=== PATIENT | female | born 1935 | race Caucasian/White ===

== ENCOUNTER 2016-05-12 18:00 | Emergency (ER) | payer OTHER, MEDICARE ==
[~2016-05-12] VITALS: Ht 152.4 cm; Wt 67.0 kg
[2016-05-12 18:39] LABS: EOSINOPHIL (%) 5.1 % (0-5); EOSINOPHIL COUNT 0.4 K/uL (0-0.3); HEMATOCRIT 33.6 % (36.0-46.0); IMMATURE GRANULOCYTE (%) 0.3 % (0.0-0.7); INSTRUMENT ABS NEUTROPHIL CT 3.4 K/uL; LYMPHOCYTE COUNT 3.1 K/uL (1.0-2.8); MCH 29.2 PG (29.0-34.0); MCHC 32.7 G/DL (30.0-36.0); MCV 89.1 FL (83-99); MEAN PLAT.VOLUME 11.2 uM^3 (9.5-12.4); MONOCYTE (%) 7.3 % (3-12); MONOCYTE COUNT 0.6 K/uL (0-0.8); NEUTROPHIL (%) 45.1 % (45-76); NEUTROPHIL COUNT 3.4 K/uL (1.8-6.4); PLATELET COUNT 350 K/uL (156-360); RBC DIS.WIDTH-CV 13.1 % (11.8-14.6); RBC DIS.WIDTH-SD 42.6 % (39-53); RED BLOOD COUNT 3.77 M/uL (3.80-5.20); WHITE BLOOD COUNT 7.5 K/uL (4.1-10.2)
[2016-05-12 19:00] LABS: CHLORIDE 106 mEq/L (99-109); POTASSIUM 3.4 mEq/L (3.7-5.4); SODIUM 143 mEq/L (136-147)
[2016-05-12 19:03] LABS: GLUCOSE 102 mg/dL (70-99)
[2016-05-12 19:04] LABS: ANION GAP 13 MEQ/L (2-14)
[2016-05-12 19:04] LABS: ADD MIUA? YES; BILIRUBIN NEGATIVE; BLOOD NEGATIVE; COLOR YELLOW ((YELLOW)); GLUCOSE (STRIP) NEGATIVE; KETONES NEGATIVE; LEUKOCYTES MODERATE; NITRITE NEGATIVE; PROTEIN (STRIP) NEGATIVE; SPECIFIC GRAVITY 1.012 (1.000-1.030); UROBILINOGEN 0.2 MG/DL (0.2-1.0)
[2016-05-12 19:05] LABS: TOTAL BILIRUBIN 0.2 mg/dL (0.0-1.0)
[2016-05-12 19:06] LABS: ALKALINE PHOSPHATASE 74 IU/L (3-129)
[2016-05-12 19:07] LABS: GFR ESTIMATE (CALCULATED) 46 mL/min/
[2016-05-12 19:08] LABS: UREA NITROGEN (BUN) 24 mg/dL (9-23)
[2016-05-12 19:10] LABS: LIPASE 77 U/L (1.0-51.0); TROP-I INTERPRETATION NEGATIVE; TROPONIN-I < 0.01 ng/mL (0.0-0.30)
[2016-05-12 19:11] LABS: EPITHELIAL CELLS 1+ /HPF; RED BLOOD CELLS 0-5 /HPF (0-5)
[2016-05-12 19:12] LABS: BACTERIA 2+ /HPF; MUCUS NONE SEEN /LPF
[2016-05-12] MEDS ORDERED: CARAFATE1 GM PO (19:40)
[2016-05-12 20:01] VITALS: BP 151/80
== END 2016-05-12 20:02 | disposition home or self-care (01) ==
LOC: EME 18:00
PROVIDERS: Physician Assistant
DX: R10.13 Epigastric pain (principal); E78.5 Hyperlipidemia, unspecified; I10 Essential (primary) hypertension
CPT/HCPCS: 71010; 80053; 81003; 83690; 84484; 85025; 93005; 99281; 99284

== ENCOUNTER 2016-05-16 08:21 | Emergency (ER) | payer OTHER, MEDICARE ==
[~2016-05-16] VITALS: Ht 152.4 cm; Wt 67.2 kg
[~2016-05-16 08:21] MED LIST: CARAFATE1 GM PO
[2016-05-16] MEDS ORDERED: TYLENOL WITH C1 EACH PO (11:31)
[2016-05-16] MEDS ORDERED: MEDROL DOSEPAK4 MG PO (11:31)
[2016-05-16 12:40] VITALS: BP 176/57
== END 2016-05-16 11:51 | disposition home or self-care (01) ==
LOC: EME 08:21
DX: M54.30 Sciatica, unspecified side (principal)
CPT/HCPCS: 72100; 73502; 99281; 99284; J1885; J2270

== ENCOUNTER 2017-01-01 01:03 | Observation (INO) | payer OTHER, MEDICARE ==
[~2017-01-01] VITALS: Ht 152.4 cm; Wt 62.4 kg
[~2017-01-01 01:03] MED LIST changes: +AMLODIPINE BESYL5 MG PO; +AMOXICILLIN500 MG PO; +BISACODYL5 MG PO; +DOCUSATE SODIU100 MG PO; +ECOTRIN325 MG PO; +ENDOCET 5-3251 EACH PO; +HYZAAR 100-21 TABLET PO; +LEVOFLOXACIN750 MG PO; +MEDROL DOSEPAK4 MG PO; +METOCLOPRAMIDE H5 MG PO; +NORCO 10/3251 TABLET PO; +OSTERA TABLET1 EACH PO; +POLYETHYLENE GL17 GM PO; +PRAVACHOL80 MG PO; +SENNA PLUS TAB1 EACH PO; +SYNTHROID75 MCG PO; +TOPROL XL100 MG PO; +TYLENOL WITH C1 EACH PO; +VITAMIN C1000 MG PO; +VITAMIN D31000 UNI2 PO; +VITAMIN E400 UNIT PO; +ZANTAC150 MG PO
[2017-01-01 01:38] LABS: HEMATOCRIT 32.4 % (36.0-46.0); MCH 28.7 PG (29.0-34.0); MCHC 32.1 G/DL (30.0-36.0); MCV 89.5 FL (83-99); MEAN PLAT.VOLUME 10.6 uM^3 (9.5-12.4); RBC DIS.WIDTH-CV 13.5 % (11.8-14.6); RBC DIS.WIDTH-SD 44.1 % (39-53); RED BLOOD COUNT 3.62 M/uL (3.80-5.20); WHITE BLOOD COUNT 6.8 K/uL (4.1-10.2)
[2017-01-01 01:47] LABS: CHLORIDE 104 mEq/L (99-109); POTASSIUM 3.3 mEq/L (3.7-5.4); SODIUM 143 mEq/L (136-147)
[2017-01-01 01:50] LABS: GLUCOSE 103 mg/dL (70-99)
[2017-01-01 01:51] LABS: ANION GAP 11 MEQ/L (2-14)
[2017-01-01 01:52] LABS: TOTAL BILIRUBIN 0.4 mg/dL (0.0-1.0)
[2017-01-01 01:53] LABS: ALKALINE PHOSPHATASE 103 IU/L (3-129); GFR ESTIMATE (CALCULATED) > 59 mL/min/
[2017-01-01 01:54] LABS: UREA NITROGEN (BUN) 17 mg/dL (9-23)
[2017-01-01 01:57] LABS: LIPASE 55 U/L (1.0-51.0)
[2017-01-01 02:02] LABS: TROP-I INTERPRETATION NEGATIVE; TROPONIN-I < 0.01 ng/mL (0.0-0.30)
[2017-01-01 02:19] LABS: PLATELET COUNT 346 K/uL (156-360)
[2017-01-01 06:17] VITALS: BP 126/61
[2017-01-01 08:29] VITALS: BP 172/73
[2017-01-01 11:58] VITALS: BP 135/58
[2017-01-01 12:42] LABS: TROP-I INTERPRETATION NEGATIVE; TROPONIN-I 0.01 ng/mL (0.0-0.30)
[2017-01-01] MEDS ORDERED: ELIQUIS5 MG PO (13:30)
[2017-01-01] MEDS ORDERED: ZOFRAN4 MG PO (16:10)
[2017-01-01] MEDS ORDERED: ASPIR 8181 M1 PO (16:10)
[2017-01-01] MEDS ORDERED: PROTONIX40 MG PO (16:20)
[2017-01-01 16:21] VITALS: BP 152/82
== END 2017-01-01 16:55 | disposition home or self-care (01) ==
LOC: EME 01:03 → EDOF 05:08 → ENRESERV 05:11 → 5WEST 06:04
PROVIDERS: Emergency Medicine; Hospitalist
DX: R07.89 Other chest pain (principal); N83.202 Unspecified ovarian cyst, left side; R11.2 Nausea with vomiting, unspecified; K44.9 Diaphragmatic hernia without obstruction or gangrene; I10 Essential (primary) hypertension; E78.00 Pure hypercholesterolemia, unspecified; E03.9 Hypothyroidism, unspecified; Z86.718 Personal history of other venous thrombosis and embolism; I44.7 Left bundle-branch block, unspecified; M19.90 Unspecified osteoarthritis, unspecified site; Z87.891 Personal history of nicotine dependence; Z80.1 Family history of malignant neoplasm of trachea, bronchus and lung; Z88.8 Allergy status to other drugs, medicaments and biological substances
CPT/HCPCS: 71010; 74177; 76856; 78582; 80053; 82378; 83690; 84484; 85027; 86301 90; 86304; 93005; 93971; 99281; 99285; A9540; A9567; C9113; G0378; J2405; J7030; S0028

== ENCOUNTER 2017-03-13 21:46 | Inpatient (IN) | payer OTHER, MEDICARE ==
[~2017-03-13] VITALS: Ht 152.4 cm; Wt 60.0 kg
[~2017-03-13 21:46] MED LIST changes: +ASPIR 8181 M1 PO; +ELIQUIS5 MG PO; +FEOSOL325 MG PO; +LO-DOSE ASPIRIN81 M1 PO; +NORVASC5 MG PO; +PROTONIX40 MG PO; +STOOL SOFTENER100 MG PO; +ZOFRAN4 MG PO
[2017-03-14 11:29] LABS: PTT 27.9 SEC (25-37)
[2017-03-14 11:39] VITALS: BP 173/70
[2017-03-14 17:50] VITALS: BP 157/58
[2017-03-14 18:46] LABS: HEMOGLOBIN 10.2 G/DL (11.9-15.5); MCH 29.6 PG (29.0-34.0); MCHC 31.9 G/DL (30.0-36.0); MCV 92.8 FL (83-99); RBC DIS.WIDTH-CV 12.8 % (11.8-14.6); RBC DIS.WIDTH-SD 43.4 % (39-53); RED BLOOD COUNT 3.45 M/uL (3.80-5.20); WHITE BLOOD COUNT 10.9 K/uL (4.1-10.2)
[2017-03-14 19:09] LABS: PLAT.SUFFICIENCY ADEQUATE; PLATELET COUNT 308 K/uL (156-360)
[2017-03-14 19:10] LABS: CHLORIDE 104 MEQ/L (99-109); GFR ESTIMATE (CALCULATED) 56 mL/min/; GLUCOSE 162 mg/dL (70-99); POTASSIUM 3.7 MEQ/L (3.7-5.4); SODIUM 140 MEQ/L (136-147); UREA NITROGEN (BUN) 18 mg/dL (9-23)
[2017-03-14 20:06] VITALS: BP 138/93
[2017-03-15 00:21] VITALS: BP 136/60
[2017-03-15 04:22] VITALS: BP 123/63
[2017-03-15 06:50] LABS: HEMATOCRIT 29.6 % (36.0-46.0); HEMOGLOBIN 9.2 G/DL (11.9-15.5); MCH 29.7 PG (29.0-34.0); MCHC 31.1 G/DL (30.0-36.0); MCV 95.5 FL (83-99); RBC DIS.WIDTH-CV 13.1 % (11.8-14.6); RBC DIS.WIDTH-SD 45.3 % (39-53); WHITE BLOOD COUNT 9.9 K/uL (4.1-10.2)
[2017-03-15 07:10] LABS: CHLORIDE 102 MEQ/L (99-109); CREATININE 1.1 MG/DL (0.6-1.3); GFR ESTIMATE (CALCULATED) 50 mL/min/; GLUCOSE 137 mg/dL (70-99); SODIUM 138 MEQ/L (136-147); UREA NITROGEN (BUN) 18 mg/dL (9-23)
[2017-03-15 07:22] LABS: PLAT.SUFFICIENCY ADEQUATE; PLATELET COUNT 274 K/uL (156-360)
[2017-03-15 08:00] VITALS: BP 161/57
[2017-03-15 13:00] VITALS: BP 142/82
[2017-03-15 17:05] VITALS: BP 142/60
[2017-03-15 23:48] VITALS: BP 125/61
[2017-03-16 06:41] VITALS: BP 132/62
[2017-03-16 07:01] LABS: HEMATOCRIT 25.8 % (36.0-46.0); HEMOGLOBIN 8.3 G/DL (11.9-15.5); MCH 30.3 PG (29.0-34.0); MCHC 32.2 G/DL (30.0-36.0); MCV 94.2 FL (83-99); PLATELET COUNT 202 K/uL (156-360); RBC DIS.WIDTH-SD 44.7 % (39-53); RED BLOOD COUNT 2.74 M/uL (3.80-5.20); WHITE BLOOD COUNT 7.3 K/uL (4.1-10.2)
[2017-03-16 07:26] LABS: CHLORIDE 103 MEQ/L (99-109); CREATININE 1.2 MG/DL (0.6-1.3); GFR ESTIMATE (CALCULATED) 46 mL/min/; POTASSIUM 3.5 MEQ/L (3.7-5.4); SODIUM 137 MEQ/L (136-147); UREA NITROGEN (BUN) 20 mg/dL (9-23)
[2017-03-16 07:35] LABS: GLUCOSE 88 mg/dL (70-99)
[2017-03-16 11:00] VITALS: BP 160/72
== END 2017-03-16 11:35 | disposition home or self-care (01) | DRG 743 ==
LOC: ENRESERV 21:46 → 2SOUTH 03-14 10:18 → ENRESERV 03-14 17:14 → 2EAST 03-14 17:49
PROVIDERS: Obstetrics & Gynecology Gynecologic Oncology
DX: D27.1 Benign neoplasm of left ovary (principal); I10 Essential (primary) hypertension; D64.9 Anemia, unspecified; E03.9 Hypothyroidism, unspecified; E78.00 Pure hypercholesterolemia, unspecified; M19.90 Unspecified osteoarthritis, unspecified site; M10.9 Gout, unspecified; M54.16 Radiculopathy, lumbar region; E55.9 Vitamin D deficiency, unspecified; K21.9 Gastro-esophageal reflux disease without esophagitis; K44.9 Diaphragmatic hernia without obstruction or gangrene; Z98.1 Arthrodesis status; Z86.718 Personal history of other venous thrombosis and embolism; Z79.01 Long term (current) use of anticoagulants; Z79.82 Long term (current) use of aspirin
CPT/HCPCS: 36415; 80048; 85027; 85610; 85730; 86850; 86900; 86901; 86920; 88307; 94799; J0330; J0690; J1100; J1170; J1650; J1885; J2270; J2405; J2710; J2765; J3010

== ENCOUNTER 2017-08-24 10:38 | Inpatient (IN) | payer OTHER, MEDICARE ==
[~2017-08-24] VITALS: Ht 154.9 cm; Wt 56.2 kg
[2017-08-24 11:54] LABS: HEMATOCRIT 26.5 % (36.0-46.0); HEMOGLOBIN 8.9 G/DL (11.9-15.5); MCH 30.3 PG (29.0-34.0); MCHC 33.6 G/DL (30.0-36.0); MCV 90.1 FL (83-99); PLATELET COUNT 410 K/uL (156-360); RBC DIS.WIDTH-CV 13.4 % (11.8-14.6); RED BLOOD COUNT 2.94 M/uL (3.80-5.20)
[2017-08-24 12:10] LABS: ALBUMIN 3.3 g/dL (3.2-4.8); CHLORIDE 102 mEq/L (99-109); POTASSIUM 3.3 mEq/L (3.7-5.4); SODIUM 140 mEq/L (136-147)
[2017-08-24 12:11] LABS: MAGNESIUM 2.5 mg/dL (1.3-2.7)
[2017-08-24 12:12] LABS: GLUCOSE 87 mg/dL (70-99); TOTAL PROTEIN 6.7 g/dL (6.4-8.3)
[2017-08-24 12:14] LABS: TOTAL BILIRUBIN 0.5 mg/dL (0.0-1.0)
[2017-08-24 12:16] LABS: ALKALINE PHOSPHATASE 144 IU/L (3-129); CREATININE 0.8 mg/dL (0.6-1.3); GFR ESTIMATE (CALCULATED) > 59 mL/min/
[2017-08-24 12:17] LABS: UREA NITROGEN (BUN) 20 mg/dL (9-23)
[2017-08-24 12:18] LABS: AST (GOT) 33 IU/L (2-34)
[2017-08-24 12:19] LABS: ALT (GPT) 12 IU/L (3-49); INTER. NORMALIZED RATIO 1.4
[2017-08-24 12:21] LABS: TROP-I INTERPRETATION POSITIVE
[2017-08-24 12:22] LABS: PTT 23.7 SEC (25-37); TROPONIN-I 2.91 ng/mL (0.0-0.30)
[2017-08-24] MEDS ORDERED: PANTOPRAZOLE SO40 MG PO (14:32)
[2017-08-24] MEDS ORDERED: ELIQUIS2.5 MG PO (14:32)
[2017-08-24] MEDS ORDERED: TRAMADOL HCL50 MG PO (14:32)
[2017-08-24] MEDS ORDERED: LOSARTAN-HCTZ1 EAC1 PO (14:32)
[2017-08-24 16:00] VITALS: BP 197/81
[2017-08-24 16:31] LABS: TROP-I INTERPRETATION POSITIVE; TROPONIN-I 2.58 ng/mL (0.0-0.30)
[2017-08-24 17:35] LABS: APPEARANCE CLEAR ((CLEAR)); BILIRUBIN NEGATIVE; BLOOD NEGATIVE; COLOR STRAW ((YELLOW)); GLUCOSE (STRIP) NEGATIVE; KETONES NEGATIVE; LEUKOCYTES SMALL; NITRITE NEGATIVE; PROTEIN (STRIP) NEGATIVE; SPECIFIC GRAVITY 1.012 (1.000-1.030); UROBILINOGEN 0.2 MG/DL (0.2-1.0)
[2017-08-24 17:41] LABS: BACTERIA NONE SEEN /HPF; EPITHELIAL CELLS RARE /HPF; HYALINE CASTS 0-5 /LPF; MUCUS TRACE /LPF; RED BLOOD CELLS 0-5 /HPF (0-5); UCUL ADDED? NO; WHITE BLOOD CELLS 0-5 /HPF (0-5)
[2017-08-24 19:46] VITALS: BP 146/67
[2017-08-24 23:49] VITALS: BP 152/67
[2017-08-25 00:57] LABS: TROP-I INTERPRETATION POSITIVE
[2017-08-25 00:59] LABS: TROPONIN-I 2.63 ng/mL (0.0-0.30)
[2017-08-25 04:16] VITALS: BP 152/69
[2017-08-25 06:56] LABS: HEMATOCRIT 24.3 % (36.0-46.0); MCH 29.5 PG (29.0-34.0); MCHC 32.9 G/DL (30.0-36.0); MCV 89.7 FL (83-99); PLATELET COUNT 410 K/uL (156-360); RBC DIS.WIDTH-CV 13.2 % (11.8-14.6); RBC DIS.WIDTH-SD 43.5 % (39-53); RED BLOOD COUNT 2.71 M/uL (3.80-5.20)
[2017-08-25 07:20] LABS: TROP-I INTERPRETATION POSITIVE; TROPONIN-I 2.38 ng/mL (0.0-0.30)
[2017-08-25 07:21] LABS: CHLORIDE 98 MEQ/L (99-109); CREATININE 0.9 MG/DL (0.6-1.3); GFR ESTIMATE (CALCULATED) > 59 mL/min/; GLUCOSE 97 mg/dL (70-99); POTASSIUM 3.1 MEQ/L (3.7-5.4); SODIUM 141 MEQ/L (136-147); UREA NITROGEN (BUN) 19 mg/dL (9-23)
[2017-08-25 08:12] VITALS: BP 143/67
[2017-08-25 11:48] VITALS: BP 142/66
[2017-08-25 16:00] VITALS: BP 123/58
[2017-08-25 19:45] VITALS: BP 153/70
[2017-08-25 23:39] VITALS: BP 134/62
[2017-08-26 04:30] VITALS: BP 147/66
[2017-08-26 08:47] VITALS: BP 152/67
[2017-08-26 11:38] VITALS: BP 119/94
[2017-08-26 15:34] LABS: HEMATOCRIT 26.4 % (36.0-46.0); MCH 30.1 PG (29.0-34.0); MCHC 34.1 G/DL (30.0-36.0); MCV 88.3 FL (83-99); RBC DIS.WIDTH-CV 13.1 % (11.8-14.6); RBC DIS.WIDTH-SD 42.3 % (39-53); RED BLOOD COUNT 2.99 M/uL (3.80-5.20)
[2017-08-26 15:40] LABS: PLATELET COUNT 574 K/uL (156-360)
[2017-08-26 15:53] LABS: CHLORIDE 96 MEQ/L (99-109); GFR ESTIMATE (CALCULATED) 56 mL/min/; GLUCOSE 131 mg/dL (70-99); POTASSIUM 3.2 MEQ/L (3.7-5.4); SODIUM 139 MEQ/L (136-147); UREA NITROGEN (BUN) 16 mg/dL (9-23)
[2017-08-26 16:42] VITALS: BP 161/70
[2017-08-26 20:06] VITALS: BP 156/71
[2017-08-27 00:30] VITALS: BP 140/65
[2017-08-27 03:55] VITALS: BP 150/69
[2017-08-27 08:48] VITALS: BP 143/63
[2017-08-27 09:23] LABS: CHLORIDE 101 MEQ/L (99-109); CREATININE 0.9 MG/DL (0.6-1.3); GFR ESTIMATE (CALCULATED) > 59 mL/min/; GLUCOSE 100 mg/dL (70-99); POTASSIUM 4.7 MEQ/L (3.7-5.4); SODIUM 140 MEQ/L (136-147); UREA NITROGEN (BUN) 13 mg/dL (9-23)
[2017-08-27 09:53] LABS: MAGNESIUM 1.6 mg/dl (1.3-2.7)
[2017-08-27 12:00] VITALS: BP 148/66
[2017-08-27 16:33] VITALS: BP 134/63
[2017-08-27 21:00] VITALS: BP 107/60
[2017-08-28] VITALS (7 sets, daily range): BP systolic 112–166; BP diastolic 53–71
[2017-08-28 09:59] LABS: CHLORIDE 101 MEQ/L (99-109); CREATININE 0.9 MG/DL (0.6-1.3); GFR ESTIMATE (CALCULATED) > 59 mL/min/; GLUCOSE 91 mg/dL (70-99); POTASSIUM 4.3 MEQ/L (3.7-5.4); SODIUM 139 MEQ/L (136-147); UREA NITROGEN (BUN) 17 mg/dL (9-23)
[2017-08-29 05:00] VITALS: BP 120/56
[2017-08-29 08:30] VITALS: BP 163/68
[2017-08-29] MEDS ORDERED: DOXYCYCLINE HY100 M3 PO (11:15)
[2017-08-29 11:41] VITALS: BP 123/61
[2017-08-29] MEDS ORDERED: LOSARTAN POTASS50 MG PO (12:02)
[2017-08-29] MEDS ORDERED: LASIX20 MG PO (12:04)
[2017-08-29] MEDS ORDERED: K-DUR10 MEQ PO (12:04)
== END 2017-08-29 13:45 | disposition home health service (06) | DRG 280 ==
LOC: EME 10:38 → EDOF 12:08 → 4EAST 12:08 → ENRESERV 12:10 → 4EAST 15:12
PROVIDERS: Emergency Medicine; Internal Medicine; Nurse Practitioner Family
DX: I21.4 Non-ST elevation (NSTEMI) myocardial infarction (principal); J18.9 Pneumonia, unspecified organism; J96.01 Acute respiratory failure with hypoxia; I44.7 Left bundle-branch block, unspecified; I11.0 Hypertensive heart disease with heart failure; I16.0 Hypertensive urgency; I25.10 Atherosclerotic heart disease of native coronary artery without angina pectoris; E87.6 Hypokalemia; I50.21 Acute systolic (congestive) heart failure; E78.5 Hyperlipidemia, unspecified; I25.5 Ischemic cardiomyopathy; G89.18 Other acute postprocedural pain; I27.20 Pulmonary hypertension, unspecified; D64.9 Anemia, unspecified; E03.9 Hypothyroidism, unspecified; Z86.718 Personal history of other venous thrombosis and embolism; Z98.1 Arthrodesis status; Z79.01 Long term (current) use of anticoagulants; Z79.82 Long term (current) use of aspirin; Z79.899 Other long term (current) drug therapy; Z87.891 Personal history of nicotine dependence; E66.9 Obesity, unspecified; Z68.27 Body mass index [BMI] 27.0-27.9, adult
CPT/HCPCS: 70450; 71046; 71275; 80048; 80053; 81003; 83605; 83735; 83880; 84484; 85025; 85027; 85347; 85610; 85730; 87040; 87449; 93005; 93306; 94640; 94760; 94799; 97530 GO; 99281; 99285; C1769; C1887; J0153; J1644; J1940; J2250; J2543; J3010; J3370; J7050

== ENCOUNTER 2017-08-31 07:11 | Observation (INO) | payer OTHER, MEDICARE ==
[~2017-08-31] VITALS: Ht 154.9 cm; Wt 61.6 kg
[~2017-08-31 07:11] MED LIST changes: +DOXYCYCLINE HY100 M3 PO; +ELIQUIS2.5 MG PO; +K-DUR10 MEQ PO; +LASIX20 MG PO; +LOSARTAN POTASS50 MG PO; +LOSARTAN-HCTZ1 EAC1 PO; +PANTOPRAZOLE SO40 MG PO; +TRAMADOL HCL50 MG PO
[2017-08-31 08:06] LABS: BASOPHIL (%) 0.4 % (0-1); EOSINOPHIL (%) 0.5 % (0-5); EOSINOPHIL COUNT 0.1 K/uL (0-0.3); HEMATOCRIT 28.8 % (36.0-46.0); HEMOGLOBIN 9.6 G/DL (11.9-15.5); IMMATURE GRANULOCYTE (%) 0.8 % (0.0-0.7); LYMPHOCYTE (%) 17.7 % (15-42); LYMPHOCYTE COUNT 1.9 K/uL (1.0-2.8); MCH 29.6 PG (29.0-34.0); MCHC 33.3 G/DL (30.0-36.0); MCV 88.9 FL (83-99); MONOCYTE (%) 5.8 % (3-12); MONOCYTE COUNT 0.6 K/uL (0-0.8); NEUTROPHIL (%) 74.8 % (45-76); NEUTROPHIL COUNT 8.2 K/uL (1.8-6.4); PLATELET COUNT 707 K/uL (156-360); RBC DIS.WIDTH-CV 13.5 % (11.8-14.6); RBC DIS.WIDTH-SD 43.8 % (39-53); RED BLOOD COUNT 3.24 M/uL (3.80-5.20); WHITE BLOOD COUNT 10.9 K/uL (4.1-10.2)
[2017-08-31 08:12] LABS: INTER. NORMALIZED RATIO 1.5
[2017-08-31 08:15] LABS: PTT 31.8 SEC (25-37)
[2017-08-31 08:52] LABS: ALBUMIN 3.9 G/DL (3.2-4.8); ALKALINE PHOSPHATASE 144 IU/L (3-129); ALT (GPT) 13 IU/L (3-49); AST (GOT) 22 IU/L (2-34); CHLORIDE 99 MEQ/L (99-109); CREATININE 1.2 MG/DL (0.6-1.3); DIRECT BILIRUBIN 0.1 mg/dL (0.0-0.3); GFR ESTIMATE (CALCULATED) 46 mL/min/; GLUCOSE 125 mg/dL (70-99); POTASSIUM 4.6 MEQ/L (3.7-5.4); SODIUM 139 MEQ/L (136-147); TOTAL BILIRUBIN 0.5 MG/DL (0.0-1.0); TOTAL PROTEIN 7.1 G/DL (6.4-8.3)
[2017-08-31 08:53] LABS: TROP-I INTERPRETATION INDETERMINATE; TROPONIN-I 0.52 ng/mL (0.0-0.30)
[2017-08-31 08:54] LABS: UREA NITROGEN (BUN) 37 mg/dL (9-23)
[2017-08-31 12:06] LABS: APPEARANCE CLEAR ((CLEAR)); BILIRUBIN NEGATIVE; BLOOD NEGATIVE; COLOR YELLOW ((YELLOW)); GLUCOSE (STRIP) NEGATIVE; KETONES 5; LEUKOCYTES NEGATIVE; NITRITE NEGATIVE; PROTEIN (STRIP) NEGATIVE; SPECIFIC GRAVITY 1.018 (1.000-1.030); UCUL ADDED? NO; UROBILINOGEN 0.2 MG/DL (0.2-1.0)
[2017-08-31 13:11] LABS: TROP-I INTERPRETATION INDETERMINATE; TROPONIN-I 0.41 ng/mL (0.0-0.30)
[2017-08-31 13:59] VITALS: BP 152/65
[2017-08-31 17:07] LABS: HEMATOCRIT 25.1 % (36.0-46.0); HEMOGLOBIN 8.2 G/DL (11.9-15.5); MCH 29.6 PG (29.0-34.0); MCHC 32.7 G/DL (30.0-36.0); MCV 90.6 FL (83-99); PLATELET COUNT 630 K/uL (156-360); RBC DIS.WIDTH-CV 13.7 % (11.8-14.6); RBC DIS.WIDTH-SD 45.3 % (39-53); RED BLOOD COUNT 2.77 M/uL (3.80-5.20); WHITE BLOOD COUNT 11.9 K/uL (4.1-10.2)
[2017-08-31 20:00] LABS: TROP-I INTERPRETATION INDETERMINATE; TROPONIN-I 0.56 ng/mL (0.0-0.30)
[2017-08-31 20:13] VITALS: BP 133/62
[2017-09-01 00:11] VITALS: BP 122/57
[2017-09-01 04:17] VITALS: BP 151/68
[2017-09-01 07:38] VITALS: BP 140/63
[2017-09-01 08:56] LABS: HEMATOCRIT 26.4 % (36.0-46.0); HEMOGLOBIN 8.5 G/DL (11.9-15.5); MCH 29.5 PG (29.0-34.0); MCHC 32.2 G/DL (30.0-36.0); MCV 91.7 FL (83-99); PLATELET COUNT 625 K/uL (156-360); RBC DIS.WIDTH-CV 13.8 % (11.8-14.6); RBC DIS.WIDTH-SD 46.1 % (39-53); RED BLOOD COUNT 2.88 M/uL (3.80-5.20); WHITE BLOOD COUNT 9.6 K/uL (4.1-10.2)
[2017-09-01 09:24] LABS: CHLORIDE 103 MEQ/L (99-109); CREATININE 1.1 MG/DL (0.6-1.3); GFR ESTIMATE (CALCULATED) 50 mL/min/; POTASSIUM 4.4 MEQ/L (3.7-5.4); SODIUM 141 MEQ/L (136-147); UREA NITROGEN (BUN) 27 mg/dL (9-23)
[2017-09-01 09:26] LABS: GLUCOSE 89 mg/dL (70-99)
[2017-09-01 11:22] VITALS: BP 119/63
== END 2017-09-01 15:47 | disposition home or self-care (01) ==
LOC: EME 07:11 → ENRESERV 12:54 → EDOF 12:55 → 4SOUTH 12:55 → EDOF 12:55 → ENRESERV 13:08 → 4SOUTH 13:42
PROVIDERS: Emergency Medicine; Internal Medicine; Nurse Practitioner Adult Health; Nurse Practitioner Family
DX: R11.2 Nausea with vomiting, unspecified (principal); I10 Essential (primary) hypertension; R79.89 Other specified abnormal findings of blood chemistry; Z86.718 Personal history of other venous thrombosis and embolism; Z79.01 Long term (current) use of anticoagulants; E78.5 Hyperlipidemia, unspecified; M19.90 Unspecified osteoarthritis, unspecified site; E03.9 Hypothyroidism, unspecified; I21.4 Non-ST elevation (NSTEMI) myocardial infarction; J18.9 Pneumonia, unspecified organism; Y95 Nosocomial condition; Z79.82 Long term (current) use of aspirin; Z88.5 Allergy status to narcotic agent; Z88.8 Allergy status to other drugs, medicaments and biological substances
CPT/HCPCS: 71045; 71275; 74177; 80048; 80076; 81003; 83605; 83880; 84484; 85025; 85027; 85610; 85730; 93005; 99281; 99285; C9113; G0378; J1200; J2270; J2405; J2765; J7030

== ENCOUNTER 2017-09-14 22:10 | Observation (INO) | payer OTHER, MEDICARE ==
[~2017-09-14] VITALS: Ht 154.9 cm; Wt 57.2 kg
[~2017-09-14 22:10] MED LIST changes: +CHILDREN'S ASPI81 M1 PO; -FEOSOL325 MG PO; +FERGON324 MG PO; -LO-DOSE ASPIRIN81 M1 PO
[2017-09-14 23:09] LABS: INTER. NORMALIZED RATIO 1.4
[2017-09-14 23:12] LABS: PTT 29.6 SEC (25-37)
[2017-09-14 23:19] LABS: HEMATOCRIT 25.9 % (36.0-46.0); HEMOGLOBIN 8.7 G/DL (11.9-15.5); MCH 29.3 PG (29.0-34.0); MCHC 33.6 G/DL (30.0-36.0); RBC DIS.WIDTH-SD 41.3 % (39-53); RED BLOOD COUNT 2.97 M/uL (3.80-5.20); WHITE BLOOD COUNT 10.3 K/uL (4.1-10.2)
[2017-09-14 23:22] LABS: ALBUMIN 3.3 g/dL (3.2-4.8); CHLORIDE 102 mEq/L (99-109); POTASSIUM 3.2 mEq/L (3.7-5.4); SODIUM 138 mEq/L (136-147)
[2017-09-14 23:24] LABS: TROP-I INTERPRETATION NEGATIVE; TROPONIN-I 0.01 ng/mL (0.0-0.30)
[2017-09-14 23:25] LABS: GLUCOSE 104 mg/dL (70-99); TOTAL PROTEIN 6.4 g/dL (6.4-8.3)
[2017-09-14 23:27] LABS: TOTAL BILIRUBIN 0.2 mg/dL (0.0-1.0)
[2017-09-14 23:28] LABS: ALKALINE PHOSPHATASE 162 IU/L (3-129); CREATININE 1.1 mg/dL (0.6-1.3); GFR ESTIMATE (CALCULATED) 50 mL/min/
[2017-09-14 23:29] LABS: UREA NITROGEN (BUN) 14 mg/dL (9-23)
[2017-09-14 23:30] LABS: AST (GOT) 16 IU/L (2-34); DIRECT BILIRUBIN 0.1 mg/dL (0.0-0.3)
[2017-09-14 23:31] LABS: ALT (GPT) 13 IU/L (3-49)
[2017-09-14 23:32] LABS: LIPASE 75 U/L (1.0-51.0)
[2017-09-15 00:01] LABS: MCV 87.2 FL (83-99)
[2017-09-15 00:28] LABS: PLATELET COUNT 377 K/uL (156-360)
[2017-09-15 00:29] LABS: BASOPHIL (%) 0.4 % (0-1); EOSINOPHIL (%) 7.6 % (0-5); EOSINOPHIL COUNT 0.8 K/uL (0-0.3); IMMATURE GRANULOCYTE (%) 0.9 % (0.0-0.7); LYMPHOCYTE (%) 23.2 % (15-42); LYMPHOCYTE COUNT 2.4 K/uL (1.0-2.8); MONOCYTE (%) 6.4 % (3-12); MONOCYTE COUNT 0.7 K/uL (0-0.8); NEUTROPHIL (%) 61.5 % (45-76); NEUTROPHIL COUNT 6.3 K/uL (1.8-6.4); PLAT.SUFFICIENCY ADEQUATE
[2017-09-15] MEDS ORDERED: FUROSEMIDE20 MG PO (01:15)
[2017-09-15] MEDS ORDERED: COZAAR50 MG PO (01:15)
[2017-09-15] MEDS ORDERED: OXYCODONE HCL5 MG PO (01:17)
[2017-09-15] MEDS ORDERED: ZOFRAN4 MG PO (01:18)
[2017-09-15] MEDS ORDERED: KLOR-CON M2020 MEQ PO (01:18)
[2017-09-15] MEDS ORDERED: AMPICILLIN SODIU2 GM IV (01:19)
[2017-09-15] MEDS ORDERED: CEFTRIAXONE2 G1 IV (01:20)
[2017-09-15] MEDS ORDERED: DULCOLAX10 MG PR (01:21)
[2017-09-15] MEDS ORDERED: MIRALAX119 GM PO (01:21)
[2017-09-15] MEDS ORDERED: SENNA8.6 MG PO (01:21)
[2017-09-15 02:31] VITALS: BP 180/76
[2017-09-15 04:37] VITALS: BP 164/80
[2017-09-15 07:12] LABS: TROP-I INTERPRETATION NEGATIVE; TROPONIN-I 0.02 ng/mL (0.0-0.30)
[2017-09-15 07:47] VITALS: BP 159/76
[2017-09-15 11:45] VITALS: BP 157/68
[2017-09-15 13:26] LABS: TROP-I INTERPRETATION NEGATIVE; TROPONIN-I 0.01 ng/mL (0.0-0.30)
[2017-09-15] MEDS ORDERED: IMDUR30 MG PO (14:26)
[2017-09-15] MEDS ORDERED: NITROSTAT0.4 MG SL (14:27)
[2017-09-15 16:16] VITALS: BP 148/79
== END 2017-09-15 17:43 | disposition designated cancer center or children's hospital (05) ==
LOC: EME → EDBD 22:10 → EDOF 09-15 01:04 → 4SOUTH 09-15 01:04 → EDOF 09-15 01:04 → 4SOUTH 09-15 02:13
PROVIDERS: Emergency Medicine; Physician Assistant Medical
DX: I11.0 Hypertensive heart disease with heart failure (principal); I50.23 Acute on chronic systolic (congestive) heart failure; M54.89 Other dorsalgia; I25.119 Atherosclerotic heart disease of native coronary artery with unspecified angina pectoris; Z86.718 Personal history of other venous thrombosis and embolism; Z79.01 Long term (current) use of anticoagulants; I25.5 Ischemic cardiomyopathy; Z98.1 Arthrodesis status; E78.5 Hyperlipidemia, unspecified; I44.7 Left bundle-branch block, unspecified; T81.4XXA Infection following a procedure, initial encounter; B95.2 Enterococcus as the cause of diseases classified elsewhere; Z87.891 Personal history of nicotine dependence; Z88.5 Allergy status to narcotic agent; Z82.49 Family history of ischemic heart disease and other diseases of the circulatory system; Z80.1 Family history of malignant neoplasm of trachea, bronchus and lung; M06.9 Rheumatoid arthritis, unspecified; Z90.710 Acquired absence of both cervix and uterus; Z90.79 Acquired absence of other genital organ(s); Z90.722 Acquired absence of ovaries, bilateral; I21.4 Non-ST elevation (NSTEMI) myocardial infarction; R11.2 Nausea with vomiting, unspecified; E03.9 Hypothyroidism, unspecified; Z79.82 Long term (current) use of aspirin; H93.13 Tinnitus, bilateral
CPT/HCPCS: 71046; 80048; 80076; 83605; 83690; 83880; 84484; 85025; 85610; 85730; 93005; 99281; 99285; G0378; J0290; J0696; J1200; J2765; J7050

== ENCOUNTER 2017-10-04 11:41 | Emergency (ER) | payer OTHER, MEDICARE ==
[~2017-10-04] VITALS: Ht 154.9 cm; Wt 60.9 kg
[~2017-10-04 11:41] MED LIST changes: +AMPICILLIN SODIU2 GM IV; +CEFTRIAXONE2 G1 IV; +COZAAR50 MG PO; +DULCOLAX10 MG PR; +FUROSEMIDE20 MG PO; +IMDUR30 MG PO; +KLOR-CON M2020 MEQ PO; +MIRALAX119 GM PO; +NITROSTAT0.4 MG SL; +OXYCODONE HCL5 MG PO; +SENNA8.6 MG PO
[2017-10-04 12:42] LABS: BASOPHIL (%) 0.5 % (0-1); EOSINOPHIL (%) 2.3 % (0-5); EOSINOPHIL COUNT 0.2 K/uL (0-0.3); HEMATOCRIT 22.7 % (36.0-46.0); HEMOGLOBIN 7.1 G/DL (11.9-15.5); IMMATURE GRANULOCYTE (%) 0.3 % (0.0-0.7); LYMPHOCYTE (%) 17.6 % (15-42); LYMPHOCYTE COUNT 1.4 K/uL (1.0-2.8); MCHC 31.3 G/DL (30.0-36.0); MCV 89.4 FL (83-99); MONOCYTE (%) 6.7 % (3-12); MONOCYTE COUNT 0.5 K/uL (0-0.8); NEUTROPHIL (%) 72.6 % (45-76); NEUTROPHIL COUNT 5.8 K/uL (1.8-6.4); RBC DIS.WIDTH-CV 14.2 % (11.8-14.6); RBC DIS.WIDTH-SD 45.6 % (39-53); RED BLOOD COUNT 2.54 M/uL (3.80-5.20); WHITE BLOOD COUNT 7.9 K/uL (4.1-10.2)
[2017-10-04 12:45] LABS: PLATELET COUNT 516 K/uL (156-360)
[2017-10-04 12:46] LABS: INTER. NORMALIZED RATIO 1.4
[2017-10-04 12:49] LABS: PTT 31.6 SEC (25-37)
[2017-10-04 12:52] LABS: CHLORIDE 102 mEq/L (99-109); POTASSIUM 3.5 mEq/L (3.7-5.4); SODIUM 142 mEq/L (136-147)
[2017-10-04 12:53] LABS: GLUCOSE 94 mg/dL (70-99)
[2017-10-04 12:57] LABS: CREATININE 1.8 mg/dL (0.6-1.3); GFR ESTIMATE (CALCULATED) 28 mL/min/
[2017-10-04 12:58] LABS: UREA NITROGEN (BUN) 29 mg/dL (9-23)
[2017-10-04 15:43] VITALS: BP 145/65
== END 2017-10-04 15:43 | disposition designated cancer center or children's hospital (05) ==
LOC: EME 11:41
PROVIDERS: Emergency Medicine
DX: R04.0 Epistaxis (principal); R06.02 Shortness of breath; R91.8 Other nonspecific abnormal finding of lung field; Z79.01 Long term (current) use of anticoagulants; Z79.82 Long term (current) use of aspirin; Z86.718 Personal history of other venous thrombosis and embolism; I11.0 Hypertensive heart disease with heart failure; I50.9 Heart failure, unspecified; E78.5 Hyperlipidemia, unspecified; I25.2 Old myocardial infarction; E03.9 Hypothyroidism, unspecified; Z98.1 Arthrodesis status; Z87.891 Personal history of nicotine dependence
CPT/HCPCS: 71045; 80048; 85025; 85610; 85730; 86850; 86900; 86901; 99281; 99285; J1940